=== PATIENT | female | born 1990 | race Caucasian/White ===

== ENCOUNTER 2024-11-22 10:13 | Emergency (ER) | payer OTHER ==
[~2024-11-22] VITALS: Ht 162.6 cm; Wt 97.7 kg
[2024-11-22 10:15] VITALS: BP 129/74; PULSE 88; RESP 18; TEMP 99.3; O2SAT 97
[2024-11-22] MEDS ORDERED: NALT50TA33 PO (10:23)
[2024-11-22] MEDS ORDERED: QUET25TA PO ×2 (10:23)
[2024-11-22] MEDS ORDERED: OXCA300T70 PO (10:23)
[2024-11-22] MEDS ORDERED: ALBU18HF12 IH (10:23)
[2024-11-22] MEDS ORDERED: DOXY-354 PO (10:23)
[2024-11-22 10:41] LABS: COVID AG,FIA SOURCE NASAL SWAB
[2024-11-22 10:49] LABS: APPEARANCE,URINE CLEAR (CLEAR); GLUCOSE, URINE (UA) NEGATIVE (NEGATIVE); LEUKOCYTE ESTERASE ,URINE NEGATIVE (NEGATIVE); NITRATE,URINE NEGATIVE (NEGATIVE); OCCULT BLOOD,URINE NEGATIVE (NEGATIVE); SPECIFIC GRAVITIY, URINE 1.013 (1.003-1.030)
[2024-11-22 11:08] LABS: INFLUENZA TYPE A NEGATIVE FOR TYPE A (NEGATIVE); INFLUENZA TYPE B NEGATIVE FOR TYPE B (NEGATIVE)
[2024-11-22 11:50] LABS: SARS-COV2 (COVID) ANTIGEN,FIA Positive (Negative)
[2024-11-22] MEDS: IBUPROFEN 600 MG TABLET PO ONE (12:17)
[2024-11-22] MEDS: ACETAMINOPHEN/CODEINE 300-30 MG TABLET PO ONE (12:18)
[2024-11-22] MEDS: GuaiFENesin/D-METHORPHAN [SUGAR-FREE] 200-20MG/10 ML SYRUP UDCUP PO ONE (12:18)
[2024-11-22] MEDS ORDERED: GUAIFDM PO (12:19)
[2024-11-22] MEDS ORDERED: PSEU-191 PO (12:19)
[2024-11-22] MEDS ORDERED: ACET-2080 PO (12:19)
[2024-11-22] MEDS ORDERED: IBUP-1554 PO (12:19)
== END 2024-11-22 13:16 | disposition home or self-care (01) ==
LOC: EMS 10:13
DX: U07.1 COVID-19 (principal); J20.8 Acute bronchitis due to other specified organisms; J45.909 Unspecified asthma, uncomplicated; F15.90 Other stimulant use, unspecified, uncomplicated; F10.90 Alcohol use, unspecified, uncomplicated; F17.200 Nicotine dependence, unspecified, uncomplicated; Z90.49 Acquired absence of other specified parts of digestive tract; Z90.89 Acquired absence of other organs
CPT/HCPCS: 81003; 87804; 99284